=== PATIENT | male | born 1980 | race Caucasian/White ===

== ENCOUNTER 2018-02-05 20:48 | Emergency (ER) | payer BC ==
[2018-02-05] MEDS ORDERED: Bacitracin/Neomycin/Polymyxin B Oint 0.9 GM U/D Packet TOP ONE (22:00)
--- NOTE | 2018-02-05 22:05 | EDM.PDOC ---
ED HPI GENERAL MEDICAL PROBLEM - General Chief Complaint: Laceration Stated Complaint: cut my right leg on shake packer Time Seen by Provider: 02/05/18 20:54 Source of Information: Reports: Patient History Limitations: Reports: No Limitations - History of Present Illness INITIAL COMMENTS - FREE TEXT/NARRATIVE: Laceration right anterior lazaro secondary to tripping and getting injured on lawnmower. No other complaints. Tetanus should be up to date per patient. No numbness/tingling. Bleeding controlled. - Related Data Allergies Allergy/AdvReac Type Severity Reaction Status Date / Time morphine Allergy Itching Verified 02/05/18 22:00 Sulfa (Sulfonamide Allergy Rash Verified 02/05/18 22:00 Antibiotics) vancomycin Allergy Hypotension Verified 02/05/18 22:00 Home Meds: Home Meds traMADol [Ultram] 50 mg PO Q6H PRN 08/28/13 [History] Aspirin [Halfprin] 81 mg PO DAILY 08/24/16 [History] Cyclobenzaprine [Flexeril] 10 mg PO TID PRN #15 tablet 08/24/16 [Rx] Diclofenac Sodium 1 tab PO BID 08/24/16 [History] Fenofibrate Nanocrystallized [Fenofibrate] 145 mg PO BEDTIME 08/24/16 [History] Ibuprofen 800 mg PO Q8H PRN 08/24/16 [History] atorvaSTATin [Lipitor] 20 mg PO BEDTIME 08/24/16 [History] DULoxetine HCl [Cymbalta] 60 mg PO DAILY 02/05/18 [History] Past Medical History - Past Health History Medical/Surgical History: Denies Medical/Surgical History Cardiovascular History: Reports: High Cholesterol Musculoskeletal History: Reports: Back Pain, Chronic, Osteoarthritis Psychiatric History: Reports: Anxiety, Depression - Past Surgical History HEENT Surgical History: Reports: Oral Surgery Musculoskeletal Surgical History: Reports: Other (See Below) ED ROS GENERAL - Review of Systems Review Of Systems: ROS reveals no pertinent complaints other than HPI. ED EXAM, SKIN/RASH Exam: See Below Exam Limited By: No Limitations General Appearance: Alert, WD/WN, No Apparent Distress Eye Exam: Bilateral Eye: EOMI, PERRL Head: Atraumatic, Normocephalic Neck: Supple Respiratory/Chest: No Respiratory Distress Extremities: Normal Range of Motion, Normal Capillary Refill, Other (Linear laceration noted across mid anterior right lazaro. Lateral portion is full thickness (3cm) while medial portion is shallow (5cm)) Neurological: Alert, Oriented, Normal Cognition, Normal Gait, No Motor/Sensory Deficits Psychiatric: Normal Affect, Normal Mood Skin: Warm, Dry, Normal Color ED SKIN PROCEDURES - Laceration/Wound Repair Right Lower Anterior Leg Lac/Wound length In cm: 3 Appearance: Subcutaneous, Linear, Clean Distal NVT: Neuro & Vascular Intact Anesthetic Type: Local Local Anesthesia - Lidocaine (Xylocaine): 1% Plain Local Anesthetic Volume: 4cc Skin Prep: Providone-Iodine (Betadine) Exploration/Debridement/Repair: Wound Explored, In a Bloodless Field, Explored to Base, No Foreign Material Found Closed with: Sutures Suture Size: 3-0 # of Sutures: 4 Suture Type: Nylon, Interrupted Drain Placement: No Sterile Dressing Applied: Nurse Tetanus Status Addressed: Yes Complications: No Course - Vital Signs Last Recorded V/S: Last Vital Signs Temp 36.9 C 02/05/18 22:12 Pulse 68 02/05/18 22:12 Resp 16 02/05/18 22:12 BP 131/61 02/05/18 22:12 Pulse Ox 97 02/05/18 22:12 - Orders/Labs/Meds Meds: Medications Discontinued Medications Generic Name Dose Route Start Last Admin Trade Name Bobq PRN Reason Stop Dose Admin Lidocaine HCl 5 ml 02/05/18 21:33 02/05/18 21:48 Xylocaine-Mpf 1% INJECT 02/05/18 21:34 5 ml ONETIME ONE Administration Neomycin/Polymyxin/Bacitracin 1 each 02/05/18 22:00 02/05/18 22:03 Triple Antibiotic Oint TOP 02/05/18 22:01 1 each ONETIME ONE Administration - Re-Assessments/Exams Free Text/Narrative Re-Assessment/Exam: 02/05/18 22:09 Laceration repaired. Precautions reviewed. Wound care discussed. 02/05/18 22:19 Last Tetanus 2011 Departure - Departure Time of Disposition: 22:15 Disposition: Home, Self-Care 01 Condition: Good Clinical Impression: Laceration of right lower extremity Qualifiers: Encounter type: initial encounter Qualified Code(s): S81.811A - Laceration without foreign body, right lower leg, initial encounter - Discharge Information Instructions: Laceration Care, Adult, [id number]-[id number] Forms: ED Department Discharge Additional Instructions: Have sutures removed in 10-14 days. Keep wound protected at work as discussed. OK to apply topical antibiotic several times a day as wound heals. Follow up if any signs of infection are noted and get wound rechecked.
[2018-02-05 22:14] VITALS: BP 131/61
== END 2018-02-05 22:30 | disposition home or self-care (01) ==
LOC: LL.ED 20:48
DX: S81.811A Laceration without foreign body, right lower leg, initial encounter (principal); E78.00 Pure hypercholesterolemia, unspecified; Z88.5 Allergy status to narcotic agent; Z88.2 Allergy status to sulfonamides; Z88.1 Allergy status to other antibiotic agents; Z79.82 Long term (current) use of aspirin; Z79.899 Other long term (current) drug therapy; W17.89XA Other fall from one level to another, initial encounter
CPT/HCPCS: 12002; 99283

== ENCOUNTER 2018-09-23 09:23 | Emergency (ER) | payer BC, OTHER ==
[2018-09-23 09:36] VITALS: BP 124/82
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
== END 2018-09-23 10:25 | disposition home or self-care (01) ==
LOC: LL.ED 09:23
DX: S00.03XA Contusion of scalp, initial encounter (principal); M62.838 Other muscle spasm; E78.5 Hyperlipidemia, unspecified; I10 Essential (primary) hypertension; F41.8 Other specified anxiety disorders; M15.0 Primary generalized (osteo)arthritis; Z71.6 Tobacco abuse counseling; F17.210 Nicotine dependence, cigarettes, uncomplicated; E78.00 Pure hypercholesterolemia, unspecified; Z88.5 Allergy status to narcotic agent; Z88.2 Allergy status to sulfonamides; Z88.1 Allergy status to other antibiotic agents; W22.8XXA Striking against or struck by other objects, initial encounter; Y99.0 Civilian activity done for income or pay
CPT/HCPCS: 72040; 99283

== ENCOUNTER 2018-11-27 11:56 | Emergency (ER) | payer BC, OTHER ==
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
[2018-11-27 13:25] VITALS: BP 111/55
== END 2018-11-27 13:00 | disposition home or self-care (01) ==
LOC: LL.ED 11:56
DX: S01.112A Laceration without foreign body of left eyelid and periocular area, initial encounter (principal); S01.21XA Laceration without foreign body of nose, initial encounter; I10 Essential (primary) hypertension; J44.9 Chronic obstructive pulmonary disease, unspecified; Z88.2 Allergy status to sulfonamides; Z88.1 Allergy status to other antibiotic agents; Z79.899 Other long term (current) drug therapy; W25.XXXA Contact with sharp glass, initial encounter
CPT/HCPCS: 12013; 67938; 99283-25

== ENCOUNTER 2020-09-05 14:16 | Emergency (ER) | payer OTHER ==
[2020-09-05] MEDS ORDERED: Iopamidol 612 MG/ML 100 ML Bottle ONE (14:42)
[2020-09-05 14:43] LABS: CHLORIDE,CL 104 mmol/L (98-107); SODIUM,NA 140 mmol/L (136-145)
[2020-09-05] MEDS: Iopamidol 612 MG/ML 100 ML Bottle IVPUSH STA (14:52)
[2020-09-05] MEDS: Sodium Chloride 0.9% 1,000 ML IV ONE (14:53)
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
[2020-09-05 15:52] VITALS: BP 110/74; PULSE 68
== END 2020-09-05 16:00 | disposition home or self-care (01) ==
LOC: LL.ED 14:16
DX: S20.219A Contusion of unspecified front wall of thorax, initial encounter (principal); I10 Essential (primary) hypertension; J44.9 Chronic obstructive pulmonary disease, unspecified; E78.5 Hyperlipidemia, unspecified; Z72.0 Tobacco use; Z88.5 Allergy status to narcotic agent; Z88.2 Allergy status to sulfonamides; Z88.1 Allergy status to other antibiotic agents; Z88.8 Allergy status to other drugs, medicaments and biological substances; X58.XXXA Exposure to other specified factors, initial encounter
CPT/HCPCS: 36415; 71101-LT; 71260; 74177; 80048; 85025; 99283; 99284-25; J7030; Q9967

== ENCOUNTER 2021-05-01 18:36 | Emergency (ER) | payer BC, OTHER ==
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
[2021-05-01 20:29] LABS: ANION GAP 12.7 meq/L (7-15); CHLORIDE,CL 104 mmol/L (98-107); SODIUM,NA 142 mmol/L (136-145)
[2021-05-01] MEDS: Ketorolac 60 MG/2 ML SDV IM ONE (20:40)
[2021-05-01 21:03] VITALS: BP 136/78; PULSE 81
== END 2021-05-01 20:55 | disposition home or self-care (01) ==
LOC: LL.ED 18:36
DX: S20.219A Contusion of unspecified front wall of thorax, initial encounter (principal); R50.9 Fever, unspecified; E78.00 Pure hypercholesterolemia, unspecified; I10 Essential (primary) hypertension; J44.9 Chronic obstructive pulmonary disease, unspecified; Z72.0 Tobacco use; Z91.048 Other nonmedicinal substance allergy status; Z88.1 Allergy status to other antibiotic agents; X50.1XXA Overexertion from prolonged static or awkward postures, initial encounter; Y92.009 Unspecified place in unspecified non-institutional (private) residence as the place of occurrence of the external cause
CPT/HCPCS: 36415; 71046; 80053; 81001; 83735; 85025; 85379; 87426; 96372; 99283; 99283-25; J1885

== ENCOUNTER 2022-05-11 21:17 | Emergency (ER) | payer BC ==
[2022-05-11] MEDS ORDERED: Acetaminophen 500 MG Tab ONE (21:29)
[2022-05-11] MEDS ORDERED: Sodium Chloride 0.9% 1,000 ML IV ONE (21:45)
[2022-05-11 22:14] LABS: ANION GAP 12.3 meq/L (7-15); CHLORIDE,CL 102 mmol/L (98-107); SODIUM,NA 139 mmol/L (136-145)
[2022-05-11 22:15] LABS: ESTIMATED GFR 80 mL/min (>=60)
[2022-05-11 22:25] VITALS: BP 111/73; PULSE 99
[2022-05-11 22:30] LABS: RESPIRATORY SYNCYTIAL VIR NAA NEGATIVE (NEGATIVE)
[2022-05-11 22:32] LABS: CORONAVIRUS COVID-19 NAA POSITIVE (NEGATIVE)
== END 2022-05-11 23:04 | disposition home or self-care (01) ==
LOC: LL.ED 21:17
DX: U07.1 COVID-19 (principal); E78.00 Pure hypercholesterolemia, unspecified; I10 Essential (primary) hypertension; J44.9 Chronic obstructive pulmonary disease, unspecified; M19.90 Unspecified osteoarthritis, unspecified site; Z72.0 Tobacco use; Z79.899 Other long term (current) drug therapy; Z91.048 Other nonmedicinal substance allergy status; Z88.5 Allergy status to narcotic agent; Z88.2 Allergy status to sulfonamides; Z88.1 Allergy status to other antibiotic agents
CPT/HCPCS: 0241U; 36415; 71046; 80053; 81001; 83605; 83735; 85025; 86140; 87040; 99284; 99285; A9270; J7030

== ENCOUNTER 2023-09-04 09:11 | Emergency (ER) | payer OTHER, BC ==
[2023-09-04 09:20] VITALS: BP 125/84; PULSE 77
[2023-09-04] MEDS ORDERED: traMADol 50 MG Tab PO ONE (10:48)
[2023-09-04] MEDS ORDERED: Acetaminophen 500 MG Tab PO ONE (10:49)
== END 2023-09-04 11:55 | disposition home or self-care (01) ==
LOC: LL.ED 09:11
DX: S49.92XA Unspecified injury of left shoulder and upper arm, initial encounter (principal); F17.210 Nicotine dependence, cigarettes, uncomplicated; E78.00 Pure hypercholesterolemia, unspecified; I10 Essential (primary) hypertension; J44.9 Chronic obstructive pulmonary disease, unspecified; Z79.899 Other long term (current) drug therapy; Z88.1 Allergy status to other antibiotic agents; Z88.2 Allergy status to sulfonamides; Z88.5 Allergy status to narcotic agent; Z91.048 Other nonmedicinal substance allergy status; W00.9XXA Unspecified fall due to ice and snow, initial encounter
CPT/HCPCS: 73030-LT; 73070-LT; 99283; A9270-GY

== ENCOUNTER 2023-12-09 12:50 | Emergency (ER) | payer BC, OTHER ==
[2023-12-09] MEDS: Sodium Chloride 0.9% 1,000 ML IV ONE (13:19)
[2023-12-09] MEDS: Meclizine 25 MG Tab PO ONE (13:25)
[2023-12-09 13:26] LABS: BASOPHILS ABSOLUTE AUTO 0.04 K/uL (0.00-0.20); BASOPHILS PERCENT AUTO 0.5 % (0.0-2.0); EOSINOPHILS ABSOLUTE AUTO 0.09 K/uL (0.00-0.50); EOSINOPHILS PERCENT AUTO 1.1 % (0.0-5.0); HEMATOCRIT 40.9 % (39.0-49.0); HEMOGLOBIN 14.3 g/dL (13.1-16.8); LYMPHOCYTES ABSOLUTE AUTO 1.56 K/uL (0.50-3.50); LYMPHOCYTES PERCENT AUTO 19.3 % (10.0-50.0); MEAN CORPUSCULAR HEMOGLOBIN 29.1 pg (28.2-33.3); MEAN CORPUSCULAR VOLUME 83.3 fL (84.0-98.0); MONOCYTES ABSOLUTE AUTO 0.69 K/uL (0.00-1.00); MONOCYTES PERCENT AUTO 8.5 % (2.0-14.0); NEUTROPHILS ABSOLUTE AUTO 5.71 K/uL (1.40-7.00); NEUTROPHILS PERCENT AUTO 70.6 % (45.0-80.0); PLATELET COUNT,PLT 280 K/uL (150-350); RED BLOOD CELL COUNT 4.91 M/uL (4.33-5.41); RED CELL DISTRIBUTION WIDTH 15.4 % (11.2-14.1); WHITE BLOOD CELL COUNT,WBC 8.1 K/uL (4.0-10.2)
[2023-12-09] MEDS: Ketorolac 30 MG/ML SDV IVPUSH ONE (13:26)
[2023-12-09 13:49] LABS: ALBUMIN 4.1 g/dL (3.4-5.0); ANION GAP 8.8 meq/L (7-15); BILIRUBIN TOTAL 0.4 mg/dL (0.2-1.0); CALCIUM 8.8 mg/dL (8.5-10.1); CARBON DIOXIDE,CO2 29.2 mmol/L (21.0-32.0); CREATININE 0.97 mg/dL (0.51-1.17); EST CRCL DRUG DOSING (CG) 83.07 mL/min; MAGNESIUM 2.1 mg/dL (1.8-2.4); POTASSIUM,K 4.4 mmol/L (3.5-5.1); PROTEIN TOTAL,TP 7.5 g/dL (6.4-8.2)
[2023-12-09 14:45] VITALS: BP 126/83; PULSE 65
== END 2023-12-09 14:28 | disposition home or self-care (01) ==
LOC: LL.ED 12:50
DX: M94.0 Chondrocostal junction syndrome [Tietze] (principal); F41.9 Anxiety disorder, unspecified; R42 Dizziness and giddiness; I10 Essential (primary) hypertension; J44.9 Chronic obstructive pulmonary disease, unspecified; F17.210 Nicotine dependence, cigarettes, uncomplicated; Z91.048 Other nonmedicinal substance allergy status; Z88.5 Allergy status to narcotic agent; Z88.2 Allergy status to sulfonamides; Z88.1 Allergy status to other antibiotic agents; Z79.899 Other long term (current) drug therapy
CPT/HCPCS: 36415; 80053; 83735; 84484; 85025; 93005; 93010; 96374; 99284; 99285-25; A9270-GY; J1885; J7030

== ENCOUNTER 2024-05-06 18:32 | Emergency (ER) | payer BC ==
[2024-05-06] MEDS: Acetaminophen 500 MG Tab PO ONE (18:50)
[2024-05-06] MEDS: Bacitracin Oint 1 GM U/D Packet TOP ONE (18:50)
[2024-05-06] MEDS: traMADol 50 MG Tab PO ONE (18:51)
[2024-05-06] MEDS: Ketorolac 30 MG/ML SDV IM ONE (18:53)
[2024-05-06] MEDS: Take Home: Acetaminophen/HYDROcodone 325-10 MG, 5 Tab Pack PO ONE (19:44)
[2024-05-06 21:36] VITALS: BP 158/98; PULSE 78
== END 2024-05-06 19:54 | disposition home or self-care (01) ==
LOC: LL.ED 18:32
DX: T22.111A Burn of first degree of right forearm, initial encounter (principal); I10 Essential (primary) hypertension; J44.9 Chronic obstructive pulmonary disease, unspecified; Z79.899 Other long term (current) drug therapy; Z88.5 Allergy status to narcotic agent; Z88.2 Allergy status to sulfonamides; Z88.1 Allergy status to other antibiotic agents; Z91.048 Other nonmedicinal substance allergy status; X19.XXXA Contact with other heat and hot substances, initial encounter
CPT/HCPCS: 96372; 99283; A9270-GY; J1885